=== PATIENT | female | born 1990 | race American Indian/Alaskan Native ===

== ENCOUNTER 2022-03-07 01:36 | Inpatient (IN) | payer SELFPAY ==
[2022-03-07] MEDS ORDERED: MINERAL OIL 30 ML ORAL LIQD PO PRN (02:03)
[2022-03-07] MEDS ORDERED: CARBOPROST TROMETHAMINE 250 MCG/1 ML INJ IM PRN (02:03)
[2022-03-07] MEDS ORDERED: ePHEDrine SULFATE 50 MG/1 ML INJ IV PRN ×2 (02:03→10:00)
[2022-03-07] MEDS ORDERED: BUTORPHANOL 2 MG/1 ML INJ IV PRN ×2 (02:03)
[2022-03-07] MEDS ORDERED: AMPICILLIN/NS 2 GM/100 ML 2 GM/100 ML BAG IV ONE (02:03)
[2022-03-07] MEDS ORDERED: miSOPROStol 200 MCG TAB PR PRN (02:03)
[2022-03-07] MEDS ORDERED: OXYTOCIN 10 UNIT/1 ML INJ IM PRN (02:03)
[2022-03-07] MEDS ORDERED: ACETAMINOPHEN 325 MG TAB PO PRN ×2 (02:03→11:00)
[2022-03-07] MEDS ORDERED: METHYLERGONOVINE MALEATE 0.2 MG/ML VIAL IM PRN (02:03)
[2022-03-07] MEDS ORDERED: TERBUTALINE 1 MG/1 ML INJ SUB-Q PRN (02:03)
[2022-03-07] MEDS ORDERED: LOPERAMIDE 2 MG CAP PO PRN (02:03)
--- NOTE | 2022-03-07 02:09 | History and Physical Report ---
History of Present Illness Date of examination: 03/07/22 Date of admission: March 07, 2022 Chief complaint: Labor pain History of present illness: 31 y/o @ 40.4 weeks in active labor. Had care at [facility] and no records are available. Past History Past Medical History: no pertinent history Past Surgical History: no surgical history Family/Genetic History: none Social history: no significant social history - Obstetrical History Expected Date of Delivery: 03/03/22 Actual Gestation: 40 Week(s) 4 Day(s) : 2 Para: 1 Number of Living Children: 1 Medications and Allergies Allergies Allergy/AdvReac Type Severity Reaction Status Date / Time No Known Allergies Allergy Unverified 03/07/22 02:44 Review of Systems All systems: negative - Physical Exam Breasts: Positive: deferred Cardiovascular: Regular rate Lungs: Positive: Clear to auscultation Abdomen: Positive: soft Vulva: both: normal Deep Tendon Reflex Grade: Normal +2 - Obstetrical FHR: category 1 Uterine Contraction Monitor Mode: External Cervical Dilatation: 6 (arom 0630 clear) Cervical Effacement Percentage: 80 station: -1 Results Result Diagrams: 03/07/22 03:19 All other labs normal. Assessment and Plan A: 40.4 weeks in active labor P: Expect Pitocin augmentation
[2022-03-07] MEDS ORDERED: LACTATED RINGERS 1,000 ML IV SCH (02:15)
[2022-03-07] MEDS ORDERED: OXYTOCIN DRIP 30 UNITS/500 ML BAG IV SCH ×2 (03:00)
[2022-03-07] MEDS ORDERED: LIDOCAINE (2%) 20 MG/1 ML VIAL 20 ML MDV INFILTRATI ONE (03:03)
[2022-03-07 03:40] LABS: Hematocrit 35.9 % (30.3-42.9); Hemoglobin 12.5 gm/dl (10.1-14.3); Mean Corpuscular HGB Conc 35 % (30-34); Mean Corpuscular Volume 91 fl (79-97); Platelet Count 192 K/mm3 (140-440); Red Blood Count 3.94 M/mm3 (3.65-5.03); Red Cell Distribution Width 13.7 % (13.2-15.2)
[2022-03-07] MEDS ORDERED: AMPICILLIN/NS 1 GM/50 ML 1 GM/50 ML BAG IV SCH (07:00)
--- NOTE | 2022-03-07 08:11 | Anesthesia Consultation ---
Anesthesia Consult and Med Hx Date of service: 03/07/22 - Airway Anesthetic Teeth Evaluation: Good ROM Head & Neck: Adequate Mental/Hyoid Distance: Adequate Mallampati Class: Class II Intubation Access Assessment: Probably Good - Pulmonary Exam CTA: Yes - Cardiac Exam Cardiac Exam: RRR - Pre-Operative Health Status ASA Pre-Surgery Classification: ASA2 Proposed Anesthetic Plan: Epidural - Pulmonary Hx Smoking: No Hx Asthma: No Hx Respiratory Symptoms: No SOB: No COPD: No Home Oxygen Therapy: No Hx Pneumonia: No Hx Sleep Apnea: No - Cardiovascular System Hx Hypertension: No Hx Coronary Artery Disease: No Hx Heart Attack/AMI: No Hx Angina: No Hx Percutaneous Transluminal Coronary Angioplasty (PTCA): No Hx Cardia Arrhythmia: No Hx Pacemaker: No Hx Internal Defibrillator: No Hx Valvular Heart Disease: No Hx Heart Murmur: No Hx Peripheral Vascular Disease: No - Central Nervous System Hx Neuromuscular Disorder: No Hx Seizures: No CVA: No Hx Back Pain: No Hx Psychiatric Problems: No - Gastrointestinal Hx Ulcer: No Hx Gastroesophageal Reflux Disease: No - Endocrine Hx Renal Disease: No Hx End Stage Renal Disease: No Hx Cirrhosis: No Hx Liver Disease: No Hx Insulin Dependent Diabetes: No Hx Non-Insulin Dependent Diabetes: No Hx Thyroid Disease: No Hx Hypothyroidism: No Hx Hyperthyroidism: No - Hematic Hx Anemia: No Hx Sickle Cell Disease: No - Other Systems Hx Alcohol Use: No Hx Substance Use: No Hx Cancer: No Hx Obesity: No
--- NOTE | 2022-03-07 08:11 | Anesthesia Day of Surgery ---
Anesthesia Day of Surgery - Day of Surgery Patient Examined: Yes Patient H&P Reviewed: Yes Patient is NPO: Yes Beta Blockers: No Cardiac Clearance: No Pulmonary Clearance: No El's Test: N/A
--- NOTE | 2022-03-07 08:12 | Progress Note ---
Labor Epidural - Labor Epidural Start Time: 07:52 Stop Time: 07:58 Performed by:: DAVON DEL RIO Procedure: Epidural Requested for Labor Pain. H&P and PT Chart reviewed and consent obtained. Time out performed and the procedure was explained, all questions answered. Patient was placed in a sitting position with monitors applied. The PTs back was prepped and draped in usual sterile fashion. The Skin was localized with 3 mL of 1% lidocaine at L3-L4. A 17-gauge Touhy epidural needle was advanced to ALIX with saline at 7 cm and no blood/CSF was noted via epidural needle. Epidural catheter was advanced to 12 cm. There was negative aspiration for blood and CSF in the catheter and negative response to a test dose of 3 ml 1.5% lidocaine w/ Epi and a sterile dressing was applied Patient tolerated the procedure well and there were no immediate complications noted.
[2022-03-07] MEDS ORDERED: NALOXONE 0.4 MG/1 ML INJ IV PRN (10:00)
[2022-03-07] MEDS ORDERED: fentaNYL-BUPIV 2 MCG/ML-0.125% 200 MCG/100 ML BAG EPIDURAL SCH (10:00)
--- NOTE | 2022-03-07 10:20 | Procedure Note ---
OB Delivery Note - Delivery Date of Delivery: 03/07/22 Surgeon: ZACH DE Estimated blood loss: 100cc - Vaginal Delivery presentation: vertex Delivery position: OA Intrapartum events: none Delivery augmentation: rupture of membranes, pitocin Delivery monitor: none, external FHT, external uterine Delivery placenta: spontaneous Episiotomy: none Delivery laceration: none Anesthesia: epidural Delivery comments: of a viable male 6# 11oz on Mar 08, 2022 @ 1003 over intact perineum. Double nuchal cord loose reduced after delivery. Placenta delivered 3VCI. QBL 100cc. 8/9 - Infant A at 1 minute: 8 at 5 minutes: 9 Gender: Male (6-11)
[2022-03-07] MEDS ORDERED: diphenhydrAMINE 25 MG CAP PO PRN (10:23)
[2022-03-07] MEDS ORDERED: oxyCODONE /ACETAMINOPHEN 5-325MG TAB PO PRN (10:23)
[2022-03-07] MEDS ORDERED: WITCH HAZEL/ GLYCERIN PAD TP PRN (11:00)
[2022-03-07] MEDS ORDERED: LANOLIN/ZINC/DIMETHICONE (LANSINOH) 7 GM TP PRN (11:00)
[2022-03-07] MEDS: IBUPROFEN 800 MG TAB PO SCH ×2 (11:57→19:58)
--- NOTE | 2022-03-07 13:07 | Post Anesthesia Evaluation ---
- Post Anesthesia Evaluation Patient Participated: Yes Airway Patent: Yes Stable Respiratory Function: Yes Nausea/Vomiting: No Temp > 96.8F: Yes Pain Manageable: Yes Adequeate Hydration: Yes Anesthesia Complications: No Block Receding Appropriately: Yes Patient on Ventilator: No
[2022-03-07 13:10] LABS: Hematocrit 17.9 % (30.3-42.9); Hemoglobin 5.6 gm/dl (10.1-14.3)
[2022-03-07 13:48] LABS: Hematocrit 35.8 % (30.3-42.9); Hemoglobin 11.9 gm/dl (10.1-14.3); Mean Corpuscular HGB Conc 33 % (30-34); Mean Corpuscular Volume 92 fl (79-97); Platelet Count 185 K/mm3 (140-440)
[2022-03-07] MEDS ORDERED: MAGNESIUM HYDROXIDE (MOM) ORAL LIQD UDC PO PRN (22:00)
[2022-03-08] MEDS: IBUPROFEN 800 MG TAB PO SCH ×4 (02:05→17:11)
[2022-03-08] MEDS ORDERED: medroxyPROGESTERone ACETATE 150 MG/ML SYRINGE IM SCH (12:11)
--- NOTE | 2022-03-08 12:11 | Progress Note ---
Assessment and Plan A: PP Day #1 Stable P: Follow Routine Orders D/C Home today per patient request Depo provera 150mg IM prior to discharge RTO in 6 Weeks Subjective - Subjective Date of service: 03/08/22 Patient reports: appetite normal, voiding normally, pain well controlled, flatus, ambulating normally [place]: doing well, bottle feeding Objective - Vital Signs Latest vital signs: Vital Signs Temp Pulse Resp BP BP Pulse Ox Pulse Ox 03/08/22 08:40 98.1 F 61 20 116/70 03/08/22 07:58 97.9 F 20 97 03/08/22 07:46 62 101/57 03/08/22 02:16 98.4 F 71 18 109/69 99 03/08/22 02:13 69 98 03/08/22 02:08 76 99 03/08/22 02:05 16 03/08/22 02:03 63 99 03/08/22 01:58 64 99 03/08/22 01:53 84 98 03/08/22 01:48 79 98 03/08/22 01:43 73 99 03/08/22 01:38 72 99 03/08/22 01:33 85 99 03/08/22 01:26 65 97/58 03/08/22 01:25 67 100 03/08/22 01:14 90 97 03/08/22 01:09 68 96 03/08/22 01:04 69 96 03/08/22 00:59 68 97 03/08/22 00:54 67 96 03/08/22 00:49 68 97 03/08/22 00:44 68 95 03/08/22 00:39 66 96 03/08/22 00:34 68 97 03/08/22 00:29 66 96 03/08/22 00:25 98.7 F 57 L 101/64 03/08/22 00:24 67 96 03/08/22 00:19 64 97 03/08/22 00:14 56 L 98 03/08/22 00:09 65 97 03/08/22 00:04 61 99 03/07/22 23:59 60 99 03/07/22 23:54 61 98 03/07/22 23:49 63 98 03/07/22 23:44 70 98 03/07/22 23:39 62 98 09/18/22 23:34 91 H 99 18/22 23:19 69 98 09/18/22 23:14 82 96 18/22 23:09 79 97 18/22 23:04 70 97 18/22 22:59 61 98 18/22 22:54 68 98 18/22 22:49 71 98 18/22 22:44 68 98 18/22 22:39 63 99 18/22 22:34 64 98 18/22 22:29 83 97 18/22 22:26 77 103/63 18/22 22:24 77 98 18/22 22:19 78 98 18/22 22:14 80 98 1822 22:09 68 100 1822 22:04 84 98 18/22 21:59 64 98 18/22 21:54 65 98 18/22 21:49 68 98 18/22 21:44 77 99 1822 21:39 68 100 1822 21:34 80 100 18/22 21:29 89 99 18/22 21:24 76 97 18/22 21:19 76 98 1822 21:14 89 97 1822 21:09 80 98 1822 21:04 78 98 18/22 20:59 74 97 18/22 20:54 73 98 18/22 20:49 82 99 18/22 20:44 67 98 18/22 20:39 69 99 18/22 20:34 74 98 18/22 20:29 70 99 18/22 20:25 65 88/52 18/22 20:24 67 99 18/22 20:19 70 98 18/22 20:14 74 99 18/22 20:09 77 99 1822 20:04 73 100 18/22 19:59 67 99 18/22 19:58 16 1822 19:55 73 104/72 18/22 19:54 73 99 18/22 19:50 99 18/22 19:49 67 99 18/22 19:44 77 99 18/22 19:39 80 98 /18/22 19:34 85 99 /18/22 19:29 92 H 95 18/22 19:18 83 98 18/22 19:13 89 98 18/22 19:08 87 98 18/22 19:03 87 99 18/22 18:58 84 97 18/22 18:53 85 97 18/22 18:48 86 97 18/22 18:43 85 98 18/22 18:38 80 98 18/22 18:33 80 98 18/22 18:28 84 97 18/22 18:25 81 101/59 18/22 18:23 90 98 18/22 18:18 84 98 1822 18:13 80 98 18/22 18:08 70 98 18/22 18:03 86 99 18/22 17:58 70 98 18/22 17:53 68 96 18/22 17:48 69 97 18/22 17:43 71 97 18/22 17:38 73 97 18/22 17:33 68 97 18/22 17:28 79 97 18/22 17:27 67 16 102/63 98 18/22 17:26 74 102/63 18/22 17:25 71 98/56 18/22 17:23 70 98 18/22 17:18 75 97 18/22 17:13 78 99 18/22 17:08 73 98 18/22 17:03 71 99 18/22 16:58 75 98 18/22 16:53 89 99 18/22 16:48 70 98 18/22 16:35 78 98 18/22 16:30 87 99 18/22 16:26 72 119/68 18/22 16:25 68 99 18/22 16:20 70 96 18/22 16:15 68 96 18/22 16:10 70 97 18/22 16:08 98.1 F 18 16:05 73 97 18/22 16:00 82 97 18/22 15:55 77 98 03/07/22 15:50 88 97 03/07/22 15:45 84 97 03/07/22 15:40 79 97 03/07/22 15:35 76 97 03/07/22 15:30 74 97 03/07/22 15:25 85 97 03/07/22 15:20 74 97 03/07/22 15:15 87 98 03/07/22 15:10 91 H 97 03/07/22 15:05 89 97 03/07/22 15:00 77 96 03/07/22 14:55 78 96 03/07/22 14:50 82 97 03/07/22 14:45 84 98 03/07/22 14:40 85 97 03/07/22 14:35 85 96 03/07/22 14:30 84 97 03/07/22 14:25 83 112/67 97 03/07/22 14:22 98.0 F 03/07/22 14:20 81 97 03/07/22 14:15 77 97 03/07/22 14:10 82 97 03/07/22 14:05 86 97 03/07/22 14:00 84 97 03/07/22 13:55 76 97 03/07/22 13:50 90 98 03/07/22 13:45 85 98 03/07/22 13:40 85 97 03/07/22 13:35 83 98 03/07/22 13:30 85 97 03/07/22 13:26 82 109/60 03/07/22 13:25 94 H 98 03/07/22 13:20 88 98 03/07/22 13:15 90 97 03/07/22 13:10 83 98 03/07/22 13:05 86 98 03/07/22 13:00 89 98 03/07/22 12:55 88 98 03/07/22 12:50 86 98 03/07/22 12:45 85 97 03/07/22 12:40 84 98 03/07/22 12:35 86 98 03/07/22 12:30 92 H 98 03/07/22 12:25 88 98 18 12:20 82 99 1822 12:16 78 119/72 03/07/22 12:15 79 98 03/07/22 12:10 73 98 - Exam Breasts: Present: normal Cardiovascular: Present: Regular rate Lungs: Present: Clear to auscultation, Normal air movement Abdomen: Present: normal appearance, soft, normal bowel sounds Uterus: Present: normal, firm, fundal height below umbilicus Extremities: Present: normal - Labs Labs: Abnormal lab results 03/07/22 03/07/22 Range/Units 12:22 13:37 WBC 14.0 H (4.5-11.0) K/mm3 Hgb 5.6 L* D (10.1-14.3) gm/dl Hct 17.9 L* D (30.3-42.9) %
--- NOTE | 2022-03-08 12:13 | Discharge Summary ---
Providers - Providers Date of Admission: 03/07/22 02:03 Date of discharge: 03/08/22 Attending physician: NORA DURAN MD Primary care physician: NORA DURAN MD Hospitalization Reason for admission: active labor Delivery: Episiotomy: none Laceration: none Other procedures: none complications: none Discharge diagnosis: IUP at term delivered [place] baby: male Condition at discharge: Good Disposition: 01 HOME / SELF CARE / HOMELESS Plan - Provider Discharge Summary Activity: routine, no sex for 6 weeks, no heavy lifting 4 weeks, no strenuous exercise Diet: routine Instructions: routine Additional instructions: [] Smoking cessation referral if applicable(refer to patient education folder for contact #) [] Refer to [facility]'s [facility] [address] Booklet Call your doctor immediately for: * Fever > 100.5 * Heavy vaginal bleeding ( >1 pad per hour) * Severe persistent headache * Shortness of breath * Reddened, hot, painful area to leg or breast * Drainage or odor from incision. * Keep incision clean and dry at all times and follow doctor's instructions regarding bathing/showering - Follow up plan Follow up: NORA DURAN MD [Primary Care Provider] - 6 Weeks
[2022-03-08 19:54] VITALS: BP 107/65
== END 2022-03-08 22:30 | disposition home or self-care (01) | DRG 807 ==
LOC: TRG 01:36 → APU 01:39 → TRG 02:03 → LD 02:03 → OB 03-08 09:13
PROVIDERS: ADMIT Obstetrics & Gynecology Gynecology; ATTEND Obstetrics & Gynecology Gynecology
PROC: 10E0XZZ Delivery of Products of Conception, External Approach (ICD-10-PCS; principal; 2022-03-07)
PROC: 10907ZC Drainage of Amniotic Fluid, Therapeutic from Products of Conception, Via Natural or Artificial Opening (ICD-10-PCS; 2022-03-07)
PROC: 3E0S3BZ Introduction of Anesthetic Agent into Epidural Space, Percutaneous Approach (ICD-10-PCS; 2022-03-07)
PROC: 00HU33Z Insertion of Infusion Device into Spinal Canal, Percutaneous Approach (ICD-10-PCS; 2022-03-07)
DX: O48.0 Post-term pregnancy (principal); Z37.0 Single live birth; Z3A.40 40 weeks gestation of pregnancy; Z20.822 Contact with and (suspected) exposure to COVID-19; O69.81X0 Labor and delivery complicated by cord around neck, without compression, not applicable or unspecified
CPT/HCPCS: 36415; 85014; 85018; 85027; 86592; 86706; 86762; 86850; 86900; 86901; 87806; 96360; G0378; J3490; J0290; J0595; J1050; J2590; J7120; U0003